=== PATIENT | female | born 1965 | race Hispanic/Latino ===

== ENCOUNTER 2019-02-02 12:50 | Outpatient (CLI) | payer OTHER ==
--- NOTE | 2019-02-02 14:32 | MRI ---
MRI Lumbar Spine Noncontrast: HISTORY: Lumbar radiculopathy. Patient has had lower back pain for 2 years with radiation of pain into bilater al lower extremities. COMPARISON: None FINDINGS: The visualized retroperitoneal structures demonstrate a normal appearance. Conus medullaris is normal in morphology and terminates at the L1 level. Normal signal intensity is demonstrated in the bone marrow aside from endplate degenerative changes t he L4-5 and to lesser extent L3-4 levels. L1-2: There is a mild broad-based disc osteophyte complex with slight effacement of the ventral aspec t of the thecal sac. No significant central canal narrowing is present. Neural foramina are patent. L2-3: There is a mild broad-based disc osteophyte complex and mild facet hypertrophic changes. Findin gs result in mild narrowing of the central spinal canal. Mild bilateral neural foraminal narrowing is present. L3-4: Mild loss of intervertebral disc height is present. There is broad-based disc osteophyte comple x with associated small annular tear. Mild facet degenerative changes are present at this level. Mild bilateral neural foraminal narrowing is noted greater on the right. Mild narrowing of the centra l spinal canal is present with encroachment on the traversing bilateral L4 nerve roots. L4-5: There is a broad-based disc osteophyte complex and facet hypertrophic changes. Mild to moderate right and moderate left-sided neural foraminal narrowing is present. Mild narrowing of the central spinal canal is noted. L5-S1: Mild facet degenerative changes are present. Minimal disc osteophyte complex is present. Centr al spinal canal and neural foramina are patent. IMPRESSION: Degenerative changes in the lumbar spine greatest at the L3-4 and L4-5 levels.
== END 2019-02-02 12:51 | disposition home or self-care (01) ==
LOC: BICMRI 12:50
PROVIDERS: ATTEND Physician Assistant Medical
DX: M47.26 Other spondylosis with radiculopathy, lumbar region (principal)
CPT/HCPCS: 72148

== ENCOUNTER 2019-08-17 08:16 | Outpatient (CLI) | payer BC ==
--- NOTE | 2019-08-17 09:01 | MMO ---
Bilateral MAMMO Bilat Screen [facility]. CLINICAL HISTORY: Patient is 54 years old and is seen for screening. The patient has no family history of breast cancer. The patient has no personal history of cancer. VIEWS: The views performed were: bilateral craniocaudal with tomosynthesis and bilateral mediolateral oblique with tomosynthesis. FILMS COMPARED: The present examination has been compared to prior imaging studies performed at [facility] on 02/16/2009, 09/18/2010, 10/24/2011 and 01/06/2013. This study has been interpreted with the assistance of computer-aided detection. MAMMOGRAM FINDINGS: The breasts are heterogeneously dense, which could obscure a lesion on mammography. There are no suspicious masses, suspicious calcifications, or new areas of architectural distortion. IMPRESSION: THERE IS NO MAMMOGRAPHIC EVIDENCE OF MALIGNANCY. A ROUTINE FOLLOW-UP MAMMOGRAM IN 1 YEAR IS RECOMMENDED. THE RESULTS OF THIS EXAM WERE SENT TO THE PATIENT. ACR BI-RADS Category 1 - Negative MAMMOGRAPHY NOTE: 1. A negative mammogram report should not delay a biopsy if a dominant of clinically suspicious mass is present. 2. Approximately 10% to 15% of breast cancers are not detected by mammography. 3. Adenosis and dense breasts may obscure an underlying neoplasm. Reported by: CHACHO BOWLING MD Electonically Signed: [id number]
== END 2019-08-17 08:17 | disposition home or self-care (01) ==
LOC: BICMAMMO 08:16
PROVIDERS: ATTEND Physician Assistant Medical
DX: Z12.31 Encounter for screening mammogram for malignant neoplasm of breast (principal)
CPT/HCPCS: 77063; 77067

== ENCOUNTER 2019-09-24 11:57 | Outpatient (CLI) | payer BC ==
--- NOTE | 2019-09-24 12:22 | RAD ---
EXAM: XR Lumbar Spine Min 4 View PROVIDED CLINICAL HISTORY: Lumbar radiculopathy. Patient states pain in bilateral lower extremities. COMPARISON: None FINDINGS: There are 5 nonrib-bearing lumbar-type vertebral bodies with partial sacralization of the L5 vertebra l body on the right with pseudoarticulation of the right lateral mass of L5 with S1. The vertebral body heights are within normal limits. There is loss of intervertebral disc height at the L3-4, L4-5, and L5-S1 levels. Osteophytes are seen anteriorly involving the lower lumbar spine. No fracture or subluxation is seen involving the lumbar spine. There is no abnormal translational motion between fle xion and extension views. IMPRESSION: 1 Degenerative changes lower lumbar spine without subluxation. 2. 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
== END 2019-09-24 11:58 | disposition home or self-care (01) ==
LOC: BICRAD 11:57
PROVIDERS: ATTEND Neurological Surgery
DX: M47.26 Other spondylosis with radiculopathy, lumbar region (principal); M48.9 Spondylopathy, unspecified
CPT/HCPCS: 72110

== ENCOUNTER 2020-06-03 18:49 | Emergency (ER) | payer OTHER, SELFPAY ==
[2020-06-03] MEDS ORDERED: Morphine 4 MG/ML VIAL ONE (19:11)
== END 2020-06-03 20:35 | disposition home or self-care (01) ==
LOC: ERS 18:49
DX: S39.012A Strain of muscle, fascia and tendon of lower back, initial encounter (principal); S16.1XXA Strain of muscle, fascia and tendon at neck level, initial encounter; I10 Essential (primary) hypertension; E78.5 Hyperlipidemia, unspecified; E03.9 Hypothyroidism, unspecified; Z79.899 Other long term (current) drug therapy; V89.2XXA Person injured in unspecified motor-vehicle accident, traffic, initial encounter
CPT/HCPCS: 72100; 96372; J2270

== ENCOUNTER 2020-08-18 08:01 | Outpatient (CLI) | payer BC | END 2020-08-18 08:02 | disposition home or self-care (01) | LOC: BICMAMMO 08:01 | PROVIDERS: ATTEND Physician Assistant Medical | DX: Z12.31 Encounter for screening mammogram for malignant neoplasm of breast (principal) | CPT/HCPCS: 77063; 77067 ==

== ENCOUNTER 2021-08-10 13:28 | Outpatient (CLI) | payer BC | END 2021-08-10 13:29 | disposition home or self-care (01) | LOC: BICRAD 13:28 | PROVIDERS: ATTEND Nurse Practitioner Family | DX: R79.89 Other specified abnormal findings of blood chemistry (principal) | CPT/HCPCS: 71046 ==

== ENCOUNTER 2021-08-20 15:22 | Outpatient (CLI) | payer BC | END 2021-08-20 15:23 | disposition home or self-care (01) | LOC: BICMAMMO 15:22 | PROVIDERS: ATTEND Nurse Practitioner Family | DX: Z12.31 Encounter for screening mammogram for malignant neoplasm of breast (principal) | CPT/HCPCS: 77063; 77067 ==

== ENCOUNTER 2021-10-15 07:22 | Emergency (ER) | payer OTHER ==
[2021-10-15] MEDS ORDERED: Ketorolac Tromethamine 30 MG/ML VIAL ONE (07:47)
[2021-10-15 08:02] LABS: Hemoglobin 13.6 g/dL (12.0-16.0); Mean Corpuscular HGB CONC 33.6 g/dL (32.0-36.0); Mean Corpuscular Hemoglobin 29.7 pg (27.0-31.0); Mean Corpuscular Volume 88.4 fL (78.0-98.0); Mean Platelet Volume 7.2 fL (7.4-10.4); Platelet Count 309 thou/uL (130-400); RBC Distribution Width 12.3 % (11.5-14.5); Red Blood Cell (RBC) Count 4.57 mill/uL (4.20-5.40); White Blood Cell (WBC) Count 5.4 thou/uL (4.8-10.8)
[2021-10-15 08:28] LABS: ALT (SGPT) 55 U/L (8-55); AST (SGOT) 37 U/L (5-34); Albumin 4.5 g/dL (3.5-5.0); Alkaline Phosphatase 128 U/L (40-110); Anion Gap 16 mmol/L (10-20); BUN (Urea Nitrogen) 11 mg/dL (9.8-20.1); Bilirubin, Total 0.3 mg/dL (0.2-1.2); Calc. Creatinine Clearance 0 mL/min (70-130); Calcium 9.8 mg/dL (7.8-10.44); Carbon Dioxide 26 mmol/L (22-29); Chloride 102 mmol/L (98-107); Estimated GFR 92; Globulin 3.2 g/dL (2.4-3.5); Glucose 118 mg/dL (70-105); Lipase 18 U/L (8-78); Protein, Total 7.7 g/dL (6.0-8.3); Sodium 141 mmol/L (136-145)
[2021-10-15 08:32] LABS: Potassium 2.9 mmol/L (3.5-5.1)
[2021-10-15 08:33] LABS: Band 2 % (5-11); Eosinophils 6 % (0-10); Lymphocytes 50 % (21-51); MDiff Complete? YES; Monocytes 4 % (0-10); Neutrophil 35 % (42-75); Platelet Morphology Comment Appears Adequate; RBC Morphology Normal
[2021-10-15] MEDS ORDERED: Potassium Chloride 20 MEQ TAB ONE (08:37)
[2021-10-15 10:46] LABS: Troponin I Less than 0.010 ng/mL (< 0.028)
== END 2021-10-15 11:23 | disposition home or self-care (01) ==
LOC: ERS 07:22
DX: E87.6 Hypokalemia (principal); R07.9 Chest pain, unspecified; I10 Essential (primary) hypertension; E78.5 Hyperlipidemia, unspecified; E03.9 Hypothyroidism, unspecified; Z79.899 Other long term (current) drug therapy
CPT/HCPCS: 36415; 71045; 80053; 83690; 84484; 85025; 85379; 93005; 96374; J1885